=== PATIENT | female | born 1970 | race Caucasian/White ===

== ENCOUNTER 2018-12-05 13:04 | Emergency (ER) | payer OTHER ==
[~2018-12-05] VITALS: Ht 160 cm; Wt 54.4 kg
[2018-12-05 13:14] VITALS: BP 130/81
--- NOTE | 2018-12-05 13:35 | NUR ---
S48/F BIB SELF. ENT BY PMD FOR RECTAL PAIN. NO BLEEDING. LAST BOWEL MOVEMENT 3 DAYS AGO. PATIENT STATES PAIN OF 10/10 AT THIS TIME. PATIENT POSITIONED FOR COMFORT; HOB ELEVATED; BEDRAILS UP X1; BED DOWN. ER MD MADE AWARE OF PT STATUS.
--- NOTE | 2018-12-05 15:06 | NUR ---
Patient discharged with v/s stable. Written and verbal after care instructions given and explained. Patient alert, oriented and verbalized understanding of instructions. Ambulatory with steady gait. All questions addressed prior to discharge. ID band removed. Patient advised to follow up with PMD. Rx of mag citrate, anusol, motrin, zofran, colace given. Patient educated on indication of medication including possible reaction and side effects. Opportunity to ask questions provided and answered.
[2018-12-05 15:07] VITALS: BP 121/75
== END 2018-12-05 15:09 | disposition home or self-care (01) ==
LOC: MED 13:04
DX: K59.00 Constipation, unspecified (principal); K64.9 Unspecified hemorrhoids; I10 Essential (primary) hypertension; E11.9 Type 2 diabetes mellitus without complications
CPT/HCPCS: 99283